=== PATIENT | female | born 1955 | race Caucasian/White ===

== ENCOUNTER 2023-09-06 13:28 | Emergency (ER) | payer MEDICARE, SELFPAY ==
[2023-09-06 14:00] VITALS: BP 158/69; PULSE 75; RESP 16; TEMP 36.9; O2SAT 99
--- NOTE | 2023-09-06 15:32 | ED.SKABFB ---
HPI - Skin/Abscess/Foreign Bdy General Chief complaint: Skin/Abscess/Foreign Body Stated complaint: painful cyst under left breast Time Seen by Provider: 09/06/23 15:32 Source: patient Mode of arrival: ambulatory Limitations: no limitations History of Present Illness HPI narrative: 68-year-old female presents with complaint of tenderness, redness, small bump under left breast along bra line. Patient reports similar symptoms and was given doxycycline and antibiotic ointment. Patient states at that time she saw a construction quality control manager and it was draining. Was told she may have a cyst that would eventually need to be removed. Patient reports that symptoms started today so she came right away to get a antibiotic before got worse. Afebrile. Patient reports she gets her mammograms annually and last mammogram was normal. All systems reviewed and negative except as noted above. Related Data Home Medications Medication Instructions Recorded Confirmed atorvastatin 10 mg tablet 10 mg PO DAILY 09/06/23 09/06/23 diltiazem HCl 180 mg 180 mg PO BID 09/06/23 09/06/23 capsule,extended release 24 hr, controlled levothyroxine 125 mcg tablet 125 mcg PO DAILY 09/06/23 09/06/23 losartan 50 mg tablet 50 mg PO BID 09/06/23 09/06/23 metformin 500 mg tablet 500 mg PO BID 09/06/23 09/06/23 montelukast 10 mg tablet 10 mg PO DAILY 09/06/23 09/06/23 Allergies Allergy/AdvReac Type Severity Reaction Status Date / Time codeine Allergy Intermediate Nausea Verified 09/06/23 15:08 Sulfa (Sulfonamide Allergy Intermediate Rash Verified 09/06/23 15:08 Antibiotics) Review of Systems Review of Systems: CONSTITUTIONAL: Denies fever, chills, or sweats. EYES: Denies visual changes, redness, or discharge. ENT: Denies rhinorrhea, congestion, sore throat, or otalgia. CARDIOVASCULAR: Denies chest pain, palpitations, or edema. RESPIRATORY: Denies cough or dyspnea. GASTROINTESTINAL: Denies abdominal pain, nausea, vomiting, or diarrhea. GENITOURINARY: Denies dysuria or hematuria. SKIN: Denies rash or itching. Reports redness, small red bump, tenderness to bra line under left breast. MUSCULOSKELETAL: Denies back pain, joint pain, or myalgia. NEUROLOGIC: Denies headache, numbness, or weakness. PSYCHIATRIC: Denies anxiety or depression. All other systems reviewed are negative, except as documented in HPI. PMFSH Comments At time of signature, agree with nursing past medical, surgical, social and family history. There is no relevant family history pertinent to the presenting complaint. Exam Narrative: GENERAL: This is a well-nourished, well-developed patient, in no apparent distress. HEAD: normocephalic, atraumatic. EYES: PERRL. Sclera clear/white. Vision is grossly intact. EARS: External ears normal NOSE: External nose normal NECK: Neck supple, non-tender without lymphadenopathy, masses or thyromegaly. CARDIOVASCULAR: Regular rate and rhythm without murmurs, gallops, or rubs. RESPIRATORY: Clear to auscultation. Breath sounds equal bilaterally. No wheezes, rales, or rhonchi. SKIN: warm, Dry, intact with no suspicious lesions or rash, good texture and turgor. erythema to abdominal wall, below left breast, approx. 4cm diameter. no fluctuance or induration. no cyst noted. NEURO: awake, alert, and oriented to person, place and time. There were no obvious focal neurologic abnormalities. EXTREMITIES: No joint tenderness, effusion, or edema noted. Course Course Level of Care: Express Care Visit Vital Signs Vital signs: Vital Signs Temperature 36.9 C 09/06/23 14:00 Pulse Rate 75 09/06/23 14:00 Respiratory Rate 16 09/06/23 14:00 Blood Pressure 158/69 H 09/06/23 14:00 Pulse Oximetry 99 09/06/23 14:00 Oxygen Delivery Room Air 09/06/23 14:00 Temperature 36.9 C 09/06/23 14:00 Pulse Rate 75 09/06/23 14:00 Respiratory Rate 16 09/06/23 14:00 Blood Pressure 158/69 H 09/06/23 14:00 Pulse Oximetry 99 09/06/23
== END 2023-09-06 15:46 | disposition home or self-care (01) ==
PROVIDERS: Emergency Provider Nurse Practitioner Family
DX: L03.311 Cellulitis of abdominal wall (principal); E78.00 Pure hypercholesterolemia, unspecified; I10 Essential (primary) hypertension; J45.909 Unspecified asthma, uncomplicated; R73.03 Prediabetes; E03.9 Hypothyroidism, unspecified; Z90.2 Acquired absence of lung [part of]; Z86.011 Personal history of benign neoplasm of the brain
CPT/HCPCS: 99203; G0463